=== PATIENT | male | born 1970 | race African-American/Black ===

== ENCOUNTER 2017-06-29 10:30 | Emergency (ER) | payer OTHER ==
[~2017-06-29] VITALS: Ht 190.5 cm; Wt 72.6 kg
[~2017-06-29 10:30] MED LIST: NOHOMEMEDICATIONS; NORCO 5-325 TA1 EACH PO; PENICILLIN VK500 M1 PO
[2017-06-29] MEDS ORDERED: ULTRAM 50MG TAB50 MG PO (11:04)
== END 2017-06-29 11:35 | disposition home or self-care (01) ==
LOC: ER 10:30
DX: K08.89 Other specified disorders of teeth and supporting structures (principal); H92.01 Otalgia, right ear; I11.0 Hypertensive heart disease with heart failure; I50.9 Heart failure, unspecified

== ENCOUNTER 2017-10-09 09:30 | Emergency (ER) | payer OTHER ==
[~2017-10-09] VITALS: Ht 188 cm; Wt 81.7 kg
--- NOTE | ~2017-10-09 | EKG ---
[place] [address] [facility] [place] [address] ELECTROCARDIOGRAM REPORT Name: ROBY LONGORIA Room [facility]: [facility]Pr[facility] [id number] Admission: 10/09/17 Attend Phys: Discharge: 10/09/17 Date of : 74 Report #: [id number] THIS REPORT FOR: //name// 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 10/10/17 1405 D: 06/938 8 Maxim Rice MD, FACC /EPI
--- NOTE | ~2017-10-09 | EKG ---
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1970 Requested By: Jorge Meyer Order Number: [id number] MD: Maxim Rice Measurements Intervals [place] Rate: 70 P: 32 WA: 184 QRS: -26 QRSD: 87 T: 9 QT: 433 QTc: 468 Interpretive Statements Sinus rhythm Abnormal R-wave progression, early transition Left ventricular hypertrophy Compared to ECG 07/23/2015 23:18:26 Left ventricular hypertrophy now present Sinus tachycardia no longer present Electronically Signed On 10-10-2017 14:06:31 CDT by Maxim Rice [email or web address] <ELECTRONICALLY SIGNED> By: Maxim Rice MD, [facility] 10/10/17 1406 1005 1005 Maxim Rice MD, [facility] /EPI
[~2017-10-09 09:30] MED LIST changes: +ULTRAM 50MG TAB50 MG PO
[2017-10-09 10:42] LABS: ABSOLUTE NEUTROPHILS 5.4 thou/uL (1.4-8.2); BASOPHILS 0.9 % (0.0-2.0); EOSINOPHILS 4.9 % (0.0-3.0); HEMATOCRIT 42.9 % (42.0-52.0); LYMPHOCYTES 28.2 % (24.0-44.0); MCH 26.9 pg (26.0-34.0); MCHC 32.5 g/dL (28.0-37.0); MCV 82.8 fL (80.0-100.0); MONOCYTES 7.5 % (1.0-8.0); PLATELET COUNT 301 thou/uL (150-400); POLYS 58.5 % (36.0-66.0); RBC 5.18 mil/uL (4.50-6.00); RDW 16.3 % (10.5-14.5); WBC 9.3 thou/uL (4.0-11.0)
[2017-10-09 11:01] LABS: ANION GAP 6 mmol/L (7-16); BUN 17 mg/dL (7-18); CALCIUM 8.9 mg/dL (8.5-10.1); CHLORIDE 106 mmol/L (98-107); CO2 27 mmol/L (21-32); CREATININE 1.2 mg/dL (0.7-1.3); GLUCOSE 141 mg/dL (74-106); POTASSIUM 3.6 mmol/L (3.5-5.1); SODIUM 139 mmol/L (136-145); TROPONIN-I < 0.04 ng/mL (<0.06)
[2017-10-09 12:26] VITALS: BP 110/72
== END 2017-10-09 12:27 | disposition home or self-care (01) ==
LOC: ER 09:30
PROVIDERS: Physician Assistant
DX: F14.10 Cocaine abuse, uncomplicated (principal); I11.0 Hypertensive heart disease with heart failure; I50.9 Heart failure, unspecified